=== PATIENT | female | born 1945 | race Asian ===

== ENCOUNTER 2017-10-20 11:43 | Emergency (ER) | payer OTHER, SELFPAY ==
[2017-10-20 12:16] VITALS: BP 148/88; PULSE 78; RESP 13; TEMP 37.2; O2SAT 96
--- NOTE | 2017-10-20 12:58 | ED_ITS ---
HPI - SOB/Dyspnea <Kaylynn Serna PA-C - Last Filed: 10/20/17 22:39> General Chief Complaint: Shortness of Breath/Dyspnea Stated Complaint: SOB,COUGH Time Seen by Provider: 10/20/17 12:40 Source: patient and family Mode of arrival: ambulatory Limitations: no limitations History of Present Illness This generally healthy 75-year-old complains of 3 week history of productive cough, associated with some mild chills and sweats (no temperature is taken home ), dyspnea at times with cough fits, left earache and left-sided sinus pain and congestion. She states that she saw her PCP about 2 weeks ago and unable to evaluate the ear secondary to cerumen, ear was bleeding after attempt at extraction and she was given ear drops for this. She states she did have a chest x-ray at that time as she has had a minimal tinge of blood in the sputum after coughing. She states no pneumonia was found on chest x-ray. She states that the cough is worse at night when she tries to lie down and she notes PND then. She has had nasal congestion as well. She denies wheeze, denies dyspnea at other times, new leg swelling, chest pain or other new complaints on systems review. She is exposed to secondhand smoke regularly Related Data Previous Rx's Medication Instructions Recorded albuterol sulfate 2 puff INHALATION Q2-4H PRN #18 10/20/17 gram amoxicillin-pot clavulanate 1 tab PO Q12H #20 tab 10/20/17 [Augmentin] Allergies Allergy/AdvReac Type Severity Reaction Status Date / Time No Known Drug Allergies Allergy Verified 10/20/17 13:59 Review of Systems <Kaylynn Serna PA-C - Last Filed: 10/20/17 22:39> Review of Systems All systems reviewed & are unremarkable except as noted in HPI and below Exam <Kaylynn Serna PA-C - Last Filed: 10/20/17 22:39> Narrative Exam Narrative: GENERAL APPEARANCE: Patient sitting comfortably, in no distress. HEAD: Left frontal and maxillary tenderness, none on the right EYES: PERRL, EOMI. EARS: Normal auditory canals, TMS not visible secondary to cerumen bilaterally, there is some dried blood in the left ear canal ORAL CAVITY: Normal oropharynx THROAT: Clear, PND noted. NECK/THYROID: Neck supple, full range of motion, no cervical lymphadenopathy. LUNGS: Moderately congested breath sounds without wheeze or crackles, no cough on exam. HEART: RRR without murmur, nl S1, S2, no S3 or S4. EXTREMITIES: No edema or calf tenderness Initial Vital Signs Initial Vital Signs: Vital Signs Temperature 98.9 F 10/20/17 12:16 Pulse Rate 78 10/20/17 12:16 Respiratory Rate 13 10/20/17 12:16 Blood Pressure 148/88 H 10/20/17 12:16 Pulse Oximetry 96 10/20/17 12:16 <Aiden Matute DO - Last Filed: 10/21/17 07:50> Initial Vital Signs Initial Vital Signs: Vital Signs Temperature 98.9 F 10/20/17 12:16 Pulse Rate 78 10/20/17 12:16 Respiratory Rate 13 10/20/17 12:16 Blood Pressure 148/88 H 10/20/17 12:16 Pulse Oximetry 96 10/20/17 12:16 Course <Kaylynn Serna PA-C - Last Filed: 10/20/17 22:39> Hospital Course: Patient reported subjective improvement following nebulizer treatment Orders Ordered: Discontinued Medications Albuterol (Proventil) 1.25 mg INH NOW ONE Stop: 10/20/17 12:54 Albuterol (Ventolin) 2.5 mg INH NOW ONE Stop: 10/20/17 13:26 Vital Signs - 8 hr 10/20/17 12:16 10/20/17 13:53 Temperature 98.9 F Pulse Rate 78 65 Respiratory Rate 13 16 Blood Pressure 148/88 H Blood Pressure [Left Arm] 146/73 H Pulse Oximetry 96 96 <Aiden Matute DO - Last Filed: 10/21/17 07:50> Orders Ordered: Discontinued Medications Albuterol (Proventil) 1.25 mg INH NOW ONE Stop: 10/20/17 12:54 Albuterol (Ventolin) 2.5 mg INH NOW ONE Stop: 10/20/17 13:26 Vital Signs - 8 hr 10/20/17 12:16 10/20/17 13:53 Temperature 98.9 F Pulse Rate 78 65 Respiratory Rate 13 16 Blood Pressure 148/88 H Blood Pressure [Left Arm] 146/73 H Pulse Oximetry 96 96 Discharge Plan Departure Patient Disposition: Home, Self-Care Clinical Impression: Sinusitis, Mild reactive airways disease Discharge Date/Time: 10/20/17 14:32 Interventions: ED Discharge Assessment Last Done: 10/20/17 14:28 Instructions: DI for Sinusitis Activity Restrictions/Additional Instructions: Start the antibiotic today. Use the inhaler as needed for cough and tight chest. Return as we talked about if acutely worse, otherwise you should see your PCP if not starting to get better this week. Prescriptions: New amoxicillin-pot clavulanate [Augmentin] 875-125 mg tablet 1 tab PO Q12H Qty: 20 RF: 0 albuterol sulfate 90 mcg/actuation HFA aerosol inhaler 2 puff INHALATION Q2-4H PRN (Reason: shortness of breath) Qty: 18 RF: 0 Referrals: Kevin Delcid DO [Non-Staff] - <Aiden Matute DO - Last Filed: 10/21/17 07:50> Cosign ED Attending Tom Attestation: I was available for consultation during this patient's emergency department encounter
[2017-10-20 13:53] VITALS: BP 146/73; PULSE 65; RESP 16; O2SAT 96
--- NOTE | 2017-10-20 14:17 | PC.NURSE ---
Patient reports feeling better and less short of breath after nebulizer treatment.
[2017-10-20 14:28] VITALS: BP 146/73; PULSE 65; RESP 16; O2SAT 96
== END 2017-10-20 14:32 | disposition home or self-care (01) ==
PROVIDERS: Emergency Provider Internal Medicine
DX: J01.90 Acute sinusitis, unspecified (principal)
CPT/HCPCS: 99283